=== PATIENT | male | born 1990 | race Caucasian/White ===

== ENCOUNTER 2019-09-11 17:18 | Emergency (ER) | payer MEDICAID ==
[~2019-09-11] VITALS: Ht 188 cm; Wt 90.0 kg
[2019-09-11 17:22] VITALS: BP 130/82
[2019-09-11] MEDS ORDERED: TETanus/Pertussis (Acell)/Diphther VAC/PF (Tdap-Adult) 0.5ml syringe IMVAC ONE (18:40)
[2019-09-11] MEDS ORDERED: bacitracin 15gm ointment TP ONE (18:40)
[2019-09-11] MEDS ORDERED: LIDOcaine 1% W/epiNEPHrine 1:200,000 10ml vial IJ ONE (18:40)
== END 2019-09-11 19:59 | disposition home or self-care (01) ==
LOC: ER 17:20
DX: S01.01XA Laceration without foreign body of scalp, initial encounter (principal); W22.8XXA Striking against or struck by other objects, initial encounter; Y93.89 Activity, other specified; Y92.89 Other specified places as the place of occurrence of the external cause; Y99.8 Other external cause status
CPT/HCPCS: 12002; 70450; 90471; 90715; 99284